=== PATIENT | male | born 1990 | race Hispanic/Latino ===

== ENCOUNTER 2017-04-21 17:11 | Emergency (ER) | payer BC ==
[~2017-04-21 17:11] MED LIST: ISOVUE-370 76%-LOCM 1 ML ONE
[2017-04-21 18:03] LABS: #Lymphocytes 1.7 thou/uL (1.20-3.40); #Monocytes 0.5 thou/uL (0.11-0.59); #Neutrophils 6.2 thou/uL (1.40-6.50); %Basophils 0.4 % (0.0-1.0); %Eosinophils 0.2 % (0.0-10.0); %Lymphocytes 19.9 % (21.0-51.0); %Monocytes 5.8 % (0.0-10.0); %Neutrophils 73.7 % (42.0-75.0); Hemoglobin 15.2 g/dL (14.0-18.0); Mean Corpuscular HGB CONC 34.8 g/dL (32.0-36.0); Mean Corpuscular Hemoglobin 31.6 pg (27.0-31.0); Mean Corpuscular Volume 90.8 fl (80.0-94.0); Mean Platelet Volume 8.1 fL (7.4-10.4); Platelet Count 220 thou/uL (130-400); RBC Distribution Width 12.1 % (11.5-14.5); Red Blood Cell (RBC) Count 4.79 mill/uL (4.70-6.10); White Blood Cell (WBC) Count 8.4 thou/uL (4.8-10.8)
[2017-04-21 18:25] LABS: ALT (SGPT) 28 U/L (8-55); AST (SGOT) 20 U/L (5-34); Albumin 4.8 g/dL (3.5-5.0); Alkaline Phosphatase 74 U/L (40-150); Anion Gap 15 mmol/L (10-20); BUN (Urea Nitrogen) 13 mg/dL (8.9-20.6); Bilirubin, Total 0.6 mg/dL (0.2-1.2); Calc. Creatinine Clearance 0 mL/min (70-130); Carbon Dioxide 22 mmol/L (22-29); Chloride 102 mmol/L (98-107); Estimated GFR-MDRD Greater than 90; Globulin 3.6 g/dL (2.4-3.5); Glucose 99 mg/dL (70-105); Potassium 3.8 mmol/L (3.5-5.1); Protein, Total 8.4 g/dL (6.0-8.3); Sodium 135 mmol/L (136-145)
--- NOTE | 2017-04-21 20:04 | CT ---
CT ANGIOGRAM OF THE CHEST 04/21/17 COMPARISON: None. HISTORY: Dyspnea, tachypnea, palpitations. TECHNIQUE: Serial axial CT imaging obtained at 2.5 mm intervals from the thoracic inlet through the upper abdome n with IV contrast using a CT angiogram protocol. Coronal and oblique sagittal 3D reformatted imaging obtained. FINDINGS: No axillary, mediastinal, or hilar adenopathy. Imaged upper abdomen appears grossly unremarkable. No pleural, pericardial or mediastinal fluid. Timing of the contrast bolus slightly limits detailed asse ssment of the distal pulmonary arterial branches secondary to suboptimal opacification. There is no e vidence for a central pulmonary embolism on either side. Lung parenchyma and osseous structures appear grossly unremarkable. IMPRESSION: Slightly limited opacification of the pulmonary arterial vasculature with no convincing evidence for a central pulmonary embolism. POS: JOE
--- NOTE | 2017-05-09 19:56 | EKG ---
Test Reason : DIZZINESS Blood Pressure : / mmHG Vent. Rate : 084 BPM Atrial Rate : 084 BPM P-R Int : 164 ms QRS Dur : 094 ms QT Int : 350 ms P-R-T Axes : 049 -05 041 degrees QTc Int : 413 ms Normal sinus rhythm with sinus arrhythmia Normal ECG Confirmed by ERNST JEFFERSON ([id number]), editorial specialist SONYA BROTHERS ([id number]) on 05/09/2017 7:55:09 PM Referred By: Confirmed By:ERNST JEFFERSON
== END 2017-04-21 20:25 | disposition home or self-care (01) ==
LOC: ERS 17:11 → EDSEX 17:11 → ERS 20:25
DX: F41.9 Anxiety disorder, unspecified (principal)
CPT/HCPCS: 36415; 71275; 80053; 85025; 93005